=== PATIENT | female | born 1945 | race Caucasian/White ===

== ENCOUNTER → 2017-06-18 | Day surgery (SDC) | payer OTHER ==
[2017-06-13 08:20] VITALS: Ht 160 cm; Wt 63.2 kg
[~2017-06-18] VITALS: Ht 160 cm; Wt 63.2 kg
[~2017-06-18] MED LIST: 500ML BSS 0.3ML EPI 1:1000PF IRRIG ONE; ACETAMINOPHEN 325 MG TAB PO PRN; AMVISC PLUS 0.8ML SYRINGE INT OCU ONE; ATROPINE SULFATE 0.1 MG/ML 5ML SYR IV PRN; BRIMONIDINE TART 0.2% OP SOLN PER DROP CHARGE ONE; BROM0.07 OPL; BSS FLUSH ONE; CEPH-571 PO; ENDOCOAT 0.85ML SYRINGE INT OCU ONE; EpHEDrine SULFATE INJ 50 MG/ML AMP IV PRN; EpINEphrine INJ 1MG/ML AMP 1 MG/ML AMP ONE; LACTATED RINGER'S 1000ML 500 ML IV SCH; LIDOCAINE 4% OP SOLN DROP CHARGE ONE; LIDOCAINE 4% OP SOLN DROP CHARGE OPL SCH; LIDOCAINE HCL 1% MPF 2 ML VIAL ONE; MIDAZOLAM HCL 1 MG/ML 2ML VIAL ONE; MOXIFLOXACIN OPH SOLN PER DROP CHARGE ONE; NF656 TD; NRN/100 PO; ONDANSETRON INJ 2 MG/ML 2 ML VIAL IV PRN; POVIDONE-IODINE OP SOLN 30 ML BTL ONE; PRED1SUS OPL; PRLSR20 PO; PROPARACAINE 0.5% OP SOLN PER DROP CHARGE OPL SCH; TOBRAMYCIN/DEXAMETHASONE OPH OINT PER APPLN CHARGE ONE; VISCOAT 0.5ML SYRINGE INT OCU ONE
[2017-06-18 08:04] VITALS: TEMP 36.5
--- NOTE | 2017-06-18 08:12 | History & Physical Bridge - [place] ---
H&P Re-Evaluation Bridge Note: I have examined the patient, reviewed the History & Physical and in the interval since the performance of the History & Physical I have noted the following changes of clinical significance: No changes noted
[2017-06-18] MEDS: PHENYLEPHRINE HCL 2.5% OP SOLN PER DROP CHARGE OPL SCH ×2 (08:13→08:18)
[2017-06-18] MEDS: TROPICAMIDE 1% OP SOLN PER DROP CHARGE OPL SCH ×2 (08:14→08:19)
[2017-06-18] MEDS: CYCLOPENTOLATE HCL 1% OP SOLN PER DROP CHARGE OPL SCH ×2 (08:15→08:20)
[2017-06-18] MEDS: KETOROLAC 0.5% OP SOLN PER DROP CHARGE OPL SCH ×2 (08:16→08:21)
[2017-06-18] MEDS: MOXIFLOXACIN OPH SOLN PER DROP CHARGE OPL SCH ×2 (08:17→08:27)
--- NOTE | 2017-06-18 09:11 | Discharge Instructions-SurgCtr ---
Discharge Instructions Date of Service Jun 18, 2017. Visit Reason for Visit: Cataract Left Eye Discharge Discharge Diagnosis / Problem: cataract left eye Discharge Goals Goal(s): Improve function Activity Recommendations Activity Limitations: per Instructions/Follow-up section Lifting Limitations: no more than 5 pounds Anesthesia . Post Anesthesia Instructions: If you have had General Anesthesia or IV Sedation: * Do not drive today. * Resume driving when surgeon permits. * Do not make important decisions or sign legal documents today. * Call surgeon for: 1. Temperature elevations greater than 101 degrees F. 2. Uncontrollable pain. 3. Excessive bleeding. 4. Persistent nausea and vomiting. 5. Medication intolerance (nausea, vomiting or rash). * For nausea and vomiting use only clear liquids such as: tea, soda, bouillon until nausea subsides, then gradually increase diet as tolerated. * If you have any concerns or questions, call your surgeon's office. If physician is unavailable and it is an emergency, call 911 or go to the nearest emergency room. . Instructions / Follow-Up Instructions / Follow-Up ACTIVITY RECOMMENDATIONS: * Light activities * You may walk outside, read, watch television. * Mild irritation and blurred vision are common for the first few days, redness around the white part of the eye is common. MEDICATIONS: Resume previous medications unless instructed otherwise by your surgeon. Eye drops (today and tomorrow): Cipro - one drop in operative eye every 2 hours while awake Prednisolone 1% - one drop in operative eye every 2 hours while awake Prolensa - one drop operative eye 1 times daily SPECIAL CARE INSTRUCTIONS: * If any problems or concerns, please call Dr. Garibay's office at . * Keep plastic shield taped over eye to sleep at night. * Keep plastic shield taped over eye except to administer eye drops. * Keep plastic shield on until office visit the following day. FOLLOW UP VISIT: Follow-up with Dr. Garibay in the [place] office as scheduled. If not already scheduled, please call the office at . Diet Recommendations Home Diet: resume previous diet Procedures Procedures Performed: Left Cataract Phacoemulsification With Intraocular Lens Implant Pending Studies Studies pending at discharge: no Medical Emergencies . Who to Call and When: Medical Emergencies: If at any time you feel your situation is an emergency, please call 911 immediately. . Non-Emergent Contact Non-Emergency issues call your: Multi Sensor Operator . . "Provider Documentation" section prepared by Audi Garibay. .
--- NOTE | 2017-06-18 09:13 | [facility] Operative Report ---
Operative Report Operative Date Jun 18, 2017. Pre-Operative Diagnosis Cataract Left Eye Post-Operative Diagnosis Same Procedure(s) Performed Left Cataract Phacoemulsification With Intraocular Lens Implant Surgeon Dr. Garibay Seed District Sales Manager Surgeon(s) None Estimated Blood Loss 0 mL Findings cataract left eye Specimens None Drains none Anesthesia local with sedation Complication(s) None Disposition Recovery Room / PACU Implants mx60 18.5 Indications decreased vision left eye Description of Procedure After informed consent was obtained in the holding area the patient was wheeled back to the operating room where cardiac monitoring leads and oxygen by nasal cannula was administered by Anesthesia. Gentle IV sedation was given, and the patient's left eye was prepped and draped in usual sterile fashion. A wire lid speculum was placed into the left eye and the operating microscope was swung into position. Using 0.12 forceps and a Supersharp blade a paracentesis port was made 3 o'clock hours away from the 3 o'clock position of the patient's left eye. 1% non-preserved Lidocaine was then injected into the anterior chamber for anesthesia. A 2.0 mm keratotome blade was then used to make a shelved clear corneal incision at the 3 o'clock position of the left eye. Amvisc was injected into the anterior chamber and a cystotome and Utrata forceps were used to perform a curvilinear capsulorrhexis. BSS on a hydrodissection cannula was used to hydrodissect the lens nucleus away from the capsular bag. The phacoemulsification handpiece was then used in a stop and chop fashion to remove the lens nucleus. The irrigation and aspiration handpiece was then used to remove the residual cortical material. Amvisc was injected into the capsular bag and anterior chamber and a Bausch [employer] Lomb MX60 18.5 Diopter intraocular lens was injected into the capsular bag. Irrigation and aspiration handpiece was used to remove the residual viscoelastic material. The wounds were hydrated and noted to be watertight. The wire lid speculum was removed from the eye. Vigamox, Brimonidine, and TobraDex ointment were placed on the eye and it was shielded. It should be noted that EndoCoat was used extensively during the case to protect the cornea endothelium. DISPOSITION: The patient tolerated the procedure well and was wheeled to the post anesthesia care unit in stable condition. I attest to the content of the Intraoperative Record and any orders documented therein. Any exceptions are noted below. I attest to the content of the Intraoperative Record and any orders documented therein. Any exceptions are noted below.
--- NOTE | 2017-06-18 09:33 | Anesthesia Progress Nt - [facility] ---
Anesthesia Post Op Note Date & Time Jun 18, 2017 at 09:32 Vital Signs Pain Intensity: 0 Vital Signs Past 12 Hours Date Time Temp Pulse Resp B/P (MAP) Pulse Ox O2 Delivery O2 Flow Rate FiO2 06/18/17 09:15 78 16 121/79 (93) 63 Room Air 06/18/17 08:04 36.5 80 22 142/85 (104) 99 Room Air Notes Mental Status: alert / awake / arousable, participated in evaluation Pt Amnestic to Procedure: Yes Nausea / Vomiting: adequately controlled Pain: adequately controlled Airway Patency, RR, SpO2: stable & adequate BP & HR: stable & adequate Hydration State: stable & adequate Anesthetic Complications: no major complications apparent
[2017-06-18 09:52] VITALS: BP 127/78; PULSE 77; O2SAT 95
== END | disposition home or self-care (01) ==
LOC: X.SURG 07:48
PROVIDERS: ATTEND Ophthalmology
DX: H25.12 Age-related nuclear cataract, left eye (principal); K21.9 Gastro-esophageal reflux disease without esophagitis

== ENCOUNTER → 2017-07-09 | Day surgery (SDC) | payer OTHER ==
[2017-06-25 08:03] VITALS: Ht 160 cm; Wt 63.2 kg
[~2017-07-09] VITALS: Ht 160 cm; Wt 63.2 kg
[~2017-07-09] MED LIST changes: -LIDOCAINE 4% OP SOLN DROP CHARGE OPL SCH; +LIDOCAINE 4% OP SOLN DROP CHARGE OPR SCH; -PROPARACAINE 0.5% OP SOLN PER DROP CHARGE OPL SCH; +PROPARACAINE 0.5% OP SOLN PER DROP CHARGE OPR SCH; -VISCOAT 0.5ML SYRINGE INT OCU ONE
[2017-07-09] MEDS: PHENYLEPHRINE HCL 2.5% OP SOLN PER DROP CHARGE OPR SCH ×2 (09:03→09:08)
[2017-07-09] MEDS: TROPICAMIDE 1% OP SOLN PER DROP CHARGE OPR SCH ×2 (09:04→09:09)
[2017-07-09] MEDS: CYCLOPENTOLATE HCL 1% OP SOLN PER DROP CHARGE OPR SCH ×2 (09:05→09:10)
[2017-07-09] MEDS: KETOROLAC 0.5% OP SOLN PER DROP CHARGE OPR SCH ×2 (09:06→09:11)
[2017-07-09] MEDS: MOXIFLOXACIN OPH SOLN PER DROP CHARGE OPR SCH ×2 (09:07→09:17)
--- NOTE | 2017-07-09 10:24 | Discharge Instructions-SurgCtr ---
Discharge Instructions Date of Service Jul 09, 2017. Visit Reason for Visit: Right Cataract Discharge Discharge Diagnosis / Problem: cataract right eye Discharge Goals Goal(s): Improve function Activity Recommendations Activity Limitations: per Instructions/Follow-up section Lifting Limitations: no more than 5 pounds Anesthesia . Post Anesthesia Instructions: If you have had General Anesthesia or IV Sedation: * Do not drive today. * Resume driving when surgeon permits. * Do not make important decisions or sign legal documents today. * Call surgeon for: 1. Temperature elevations greater than 101 degrees F. 2. Uncontrollable pain. 3. Excessive bleeding. 4. Persistent nausea and vomiting. 5. Medication intolerance (nausea, vomiting or rash). * For nausea and vomiting use only clear liquids such as: tea, soda, bouillon until nausea subsides, then gradually increase diet as tolerated. * If you have any concerns or questions, call your surgeon's office. If physician is unavailable and it is an emergency, call 911 or go to the nearest emergency room. . Instructions / Follow-Up Instructions / Follow-Up ACTIVITY RECOMMENDATIONS: * Light activities * You may walk outside, read, watch television. * Mild irritation and blurred vision are common for the first few days, redness around the white part of the eye is common. MEDICATIONS: Resume previous medications unless instructed otherwise by your surgeon. Eye drops (today and tomorrow): Cipro - one drop in operative eye every 2 hours while awake Prednisolone 1% - one drop in operative eye every 2 hours while awake Prolensa - one drop operative eye 1 times daily SPECIAL CARE INSTRUCTIONS: * If any problems or concerns, please call Dr. Garibay's office at . * Keep plastic shield taped over eye to sleep at night. * Keep plastic shield taped over eye except to administer eye drops. * Keep plastic shield on until office visit the following day. FOLLOW UP VISIT: Follow-up with Dr. Garibay in the [place] office as scheduled. If not already scheduled, please call the office at . Diet Recommendations Home Diet: resume previous diet Procedures Procedures Performed: Right Cataract Phacoemulsification With Intraocular Lens Implant Pending Studies Studies pending at discharge: no Medical Emergencies . Who to Call and When: Medical Emergencies: If at any time you feel your situation is an emergency, please call 911 immediately. . Non-Emergent Contact Non-Emergency issues call your: Upkeep Worker . . "Provider Documentation" section prepared by Audi Garibay. .
[2017-07-09 10:26] VITALS: TEMP 36.8
--- NOTE | 2017-07-09 10:27 | [facility] Operative Report ---
Operative Report Operative Date Jul 09, 2017. Pre-Operative Diagnosis Cataract Right Eye Post-Operative Diagnosis same as preop Procedure(s) Performed Right Cataract Phacoemulsification With Intraocular Lens Implant Surgeon Dr. Garibay Bodybuilder Surgeon(s) none Estimated Blood Loss 0ml Findings cataract right eye Fluids (cc crystalloids) see anesthesia record Specimens none per surgeon Drains none Anesthesia local with sedation Complication(s) None Disposition Recovery Room / PACU Implants mx60 19.5 Indications decreased vision right eye Description of Procedure After informed consent was obtained in the holding area the patient was wheeled back to the operating room where cardiac monitoring leads and oxygen by nasal cannula was administered by Anesthesia. Gentle IV sedation was given, and the patient's right eye was prepped and draped in usual sterile fashion. A wire lid speculum was placed into the right eye and the operating microscope was swung into position. Using 0.12 forceps and a Supersharp blade a paracentesis port was made 2 o'clock hours away from the 9 o'clock position of the patient's right eye. 1% non-preserved Lidocaine was then injected into the anterior chamber for anesthesia. A 2.0 mm keratotome blade was then used to make a shelved clear corneal incision at the 9 o'clock position of the right eye. Amvisc was injected into the anterior chamber and a cystotome and Utrata forceps were used to perform a curvilinear capsulorrhexis. BSS on a hydrodissection cannula was used to hydrodissect the lens nucleus away from the capsular bag. The phacoemulsification handpiece was then used in a stop and chop fashion to remove the lens nucleus. The irrigation and aspiration handpiece was then used to remove the residual cortical material. Amvisc was injected into the capsular bag and anterior chamber and a Bausch & Lomb MX60 19.5 Diopter intraocular lens was injected into the capsular bag. Irrigation and aspiration handpiece was used to remove the residual viscoelastic material. The wounds were hydrated and noted to be watertight. The wire lid speculum was removed from the eye. Vigamox, Brimonidine, and TobraDex ointment were placed on the eye and it was shielded. It should be noted that EndoCoat was used extensively during the case to protect the cornea endothelium. DISPOSITION: The patient tolerated the procedure well and was wheeled to the post anesthesia care unit in stable condition. I attest to the content of the Intraoperative Record and any orders documented therein. Any exceptions are noted below. I attest to the content of the Intraoperative Record and any orders documented therein. Any exceptions are noted below.
[2017-07-09 10:50] VITALS: BP 132/84; PULSE 76; O2SAT 97
--- NOTE | 2017-07-09 10:55 | Anesthesia Progress Nt - [facility] ---
Anesthesia Post Op Note Date & Time Jul 09, 2017 at 10:55 Vital Signs Pain Intensity: 0 Vital Signs Past 12 Hours Date Time Temp Pulse Resp B/P (MAP) Pulse Ox O2 Delivery O2 Flow Rate FiO2 07/09/17 10:50 76 16 132/84 (100) 97 Room Air 07/09/17 10:26 36.8 78 16 153/78 (103) 97 Room Air 07/09/17 08:55 36.3 86 16 151/88 (109) 97 Room Air Notes Mental Status: alert / awake / arousable, participated in evaluation Pt Amnestic to Procedure: Yes Nausea / Vomiting: adequately controlled Pain: adequately controlled Airway Patency, RR, SpO2: stable & adequate BP & HR: stable & adequate Hydration State: stable & adequate Anesthetic Complications: no major complications apparent
== END | disposition home or self-care (01) ==
LOC: X.SURG 08:42
PROVIDERS: ATTEND Ophthalmology
DX: H25.11 Age-related nuclear cataract, right eye (principal); K21.9 Gastro-esophageal reflux disease without esophagitis; Z79.899 Other long term (current) drug therapy

== ENCOUNTER 2017-07-27 19:04 | Emergency (ER) | payer OTHER ==
[~2017-07-27] VITALS: Ht 160 cm; Wt 63.2 kg
[~2017-07-27 19:04] MED LIST changes: -500ML BSS 0.3ML EPI 1:1000PF IRRIG ONE; -ACETAMINOPHEN 325 MG TAB PO PRN; -AMVISC PLUS 0.8ML SYRINGE INT OCU ONE; -ATROPINE SULFATE 0.1 MG/ML 5ML SYR IV PRN; -BRIMONIDINE TART 0.2% OP SOLN PER DROP CHARGE ONE; -BSS FLUSH ONE; -CEPH-571 PO; -ENDOCOAT 0.85ML SYRINGE INT OCU ONE; -EpHEDrine SULFATE INJ 50 MG/ML AMP IV PRN; -EpINEphrine INJ 1MG/ML AMP 1 MG/ML AMP ONE; -LACTATED RINGER'S 1000ML 500 ML IV SCH; -LIDOCAINE 4% OP SOLN DROP CHARGE ONE; -LIDOCAINE 4% OP SOLN DROP CHARGE OPR SCH; -LIDOCAINE HCL 1% MPF 2 ML VIAL ONE; -MIDAZOLAM HCL 1 MG/ML 2ML VIAL ONE; -MOXIFLOXACIN OPH SOLN PER DROP CHARGE ONE; -NF656 TD; -NRN/100 PO; -ONDANSETRON INJ 2 MG/ML 2 ML VIAL IV PRN; -POVIDONE-IODINE OP SOLN 30 ML BTL ONE; -PROPARACAINE 0.5% OP SOLN PER DROP CHARGE OPR SCH; -TOBRAMYCIN/DEXAMETHASONE OPH OINT PER APPLN CHARGE ONE
[2017-07-27 19:14] VITALS: TEMP 36.8; Ht 160 cm; Wt 63.2 kg
[2017-07-27] MEDS ORDERED: LIDODERM (LIDOCAINE) PATCH 5% TD STA (19:54)
[2017-07-27] MEDS ORDERED: HYDROCODONE/ACETAMOPHEN 5/325MG TAB PO STA (19:54)
[2017-07-27] MEDS ORDERED: KETOROLAC TROMETHAMINE 15 MG/ML VIAL IM STA (19:54)
[2017-07-27] MEDS ORDERED: KETOROLAC TROMETHAMINE 30 MG/ML VIAL ONE (20:13)
[2017-07-27] MEDS ORDERED: ONDANSETRON 4MG OD TAB PO STA (20:36)
--- NOTE | 2017-07-27 20:38 | EMERGENCY ROOM VISIT NOTE ---
History Report prepared by Dany: Jose Chaudhari Under the Supervision of: Dr. Macy Dewitt D.O. First contact with patient: 19:44 Chief Complaint: BACK PAIN Stated Complaint: BACK PAIN History of Present Illness The patient is a 71 year old female who presents to the Emergency Room with complaints of constant right lower back pain for the past week. The patient states that she has had similar symptoms for the past few years, and it has worsened after a fall down some steps that occurred in April. States she would to poorly take medication after several days the pain would slowly improved. States she was seen by her PCP and started on medications a week ago when pain started again, however her pain is not abating as he normally would. She states that she is taking a muscle relaxer, steroid, and tramadol. The patient additionally states that she has been nauseous, and she is having pain and tingling in her right leg. Pt denies headache, change in vision, fevers, chest pain, shortness of breath, vomiting, diarrhea, pain with urination, and melena. Patient states she was sent for outpatient x-rays earlier today, however has not yet received results. Patient states this pain does feel similar to prior episodes however it is not going away in its usual fashion. Denies any other recent trauma or injury, no change in urine or urinary habits, no history of UTIs. Source of History: patient Onset: a week ago Position: back (lower back) Timing: constant Associated Symptoms: + nausea Note: Associated symptoms: right leg pain and tingling Review of Systems See HPI for pertinent positives & negatives. A total of 10 systems reviewed and were otherwise negative. Past Medical & Surgical Medical Problems: (1) Anemia Nos (2) Cystic Kidney Disease, Unspecified (3) Esophageal Reflux (4) Goiter Nos (5) Hernia Nos (6) Hypertrophy Of Uterus (7) Hypothyroidism Nos (8) Osteoporosis Nos (9) Uterine Endometriosis Family History Cancer Diabetes mellitus FH: heart disease Social History Smoking Status: Never Smoker Alcohol Use: none Marital Status: single Housing Status: lives alone Occupation Status: unemployed Current/Historical Medications Scheduled Bromfenac Sodium (Ophth) (Prolensa), 1 DROP OPL DAILY Cephalexin (Keflex), 1 CAP PO BID Gabapentin (Neurontin), 100 MG PO TID Lidocaine (Lidoderm Patch 5%), 1 PATCH TD DAILY Prednisolone Acetate (Ophth) (Omnipred), 1 DROPS OPL TID Scheduled PRN Omeprazole (Prilosec Otc *), 20 MG PO DAILY PRN for Indigestion Allergies Coded Allergies: Sulfa Drugs (Verified Allergy, Severe, "BODY TURNS RED", 07/09/17) Latex1 -Allergic Contact Dermititis (Verified Allergy, Unknown, RASH, 07/09) Codeine (Verified Adverse Reaction, Intermediate, N/V, 07/09/17) Physical Exam Vital Signs Date Time Temp Pulse Resp B/P (MAP) Pulse Ox O2 Delivery O2 Flow Rate FiO2 07/27/17 22:26 94 18 138/77 98 Room Air 07/27/17 19:14 36.8 102 20 157/76 96 Room Air Physical Exam GENERAL: alert, uncomfortable appearing, well nourished, no distress, non-toxic EYE EXAM: normal conjunctiva, PERRL and EOM's grossly intact OROPHARYNX: no exudate, no erythema, lips, buccal mucosa, and tongue normal and mucous membranes are moist NECK: supple, no nuchal rigidity, no adenopathy, non-tender LUNGS: Clear to auscultation. Normal chest wall mechanics HEART: no murmurs, S1 normal and S2 normal ABDOMEN: abdomen soft, non-tender, normo-active bowel sounds, no masses, no rebound or guarding. BACK: Pain in the lumbar pine at the midline and right side, no CVA tenderness. SKIN: no rashes and no bruising UPPER EXTREMITIES: upper extremities are grossly normal. LOWER EXTREMITIES: No pitting edema. No joint effusion NEURO EXAM: Normal sensorium, cranial nerves II-XII grossly intact, normal speech, no gross weakness of arms, no gross weakness of legs. Gross sensation intact. Medical Decision & Procedures ER Provider Diagnostic Interpretation: Radiology results have been interpreted by the radiologist and reviewed by me. ABD/PELVIS NO IV OR ORAL CONT CT DOSE: 408.34 mGycm HISTORY: Back pain. Flank pain. low back pain, uti TECHNIQUE: Multiaxial CT images of the abdomen and pelvis were performed without contrast. A dose lowering technique was utilized adhering to the principles of ALARA. COMPARISON STUDY: 05/22/2014 FINDINGS: Minimal basilar dependent atelectasis. Liver is uniform. Gallbladder is negative for distention. Kidneys are negative for hydronephrosis or calcification. Bowel pattern is nonobstructive. Pancreas is fatty replaced. Bladder is midline. There are no contained calcifications. There is no significant abdominal pelvic or inguinal adenopathy. No evidence for distention of the appendix. IMPRESSION: No acute process of the abdomen or pelvis. The above report was generated using voice recognition software. It may contain grammatical, syntax or spelling errors. Electronically signed by: Zeb Arrieta M.D. 07/27/2017 10:31 PM Dictated Date/Time: 07/27/2017 10:26 PM Laboratory Results Test 07/27/17 21:55 Urine Color DK YELLOW Urine Appearance CLOUDY (CLEAR) Urine pH 5.0 (4.5-7.5) Urine Specific [place] 1.026 (1.000-1.030) Urine Protein TRACE (NEG) Urine Glucose (UA) TRACE (NEG) Urine Ketones 2+ (NEG) Urine Occult Blood 1+ (NEG) Urine Nitrite POS (NEG) Urine Bilirubin NEG (NEG) Urine Urobilinogen NEG (NEG) Urine Leukocyte Esterase SMALL (NEG) Urine WBC (Auto) 10-30 /hpf (0-5) Urine RBC (Auto) 0-4 /hpf (0-4) Urine Hyaline Casts (Auto) 1-5 /lpf (0-5) Urine Epithelial Cells (Auto) 0-5 /lpf (0-5) Urine Bacteria (Auto) 4+ (NEG) Laboratory results per my review. Medications Administered Medications (Trade) Dose Ordered Sig/Zeina Route Start Time Stop Time Status Last Admin Dose Admin Lidocaine (Lidoderm Patch 5%) 1 patch NOW STAT TD 07/27/17 19:54 07/27/17 19:55 DC 07/27/17 20:17 1 PATCH Ketorolac Tromethamine (Toradol Inj) 15 mg NOW STAT IM 07/27/17 19:54 07/27/17 19:55 DC 07/27/17 20:15 15 MG Acetaminophen/ Hydrocodone Bitart ([place] 5/325 Tab) 1 tab NOW STAT PO 07/27/17 19:54 07/27/17 19:55 DC 07/27/17 20:17 1 TAB Ondansetron HCl (Zofran Odt) 4 mg NOW STAT PO 07/27/17 20:36 07/27/17 20:37 DC 07/27/17 20:47 4 MG Gabapentin (Neurontin Cap) 100 mg NOW STAT PO 07/27/17 21:44 07/27/17 21:46 DC 07/27/17 21:55 100 MG Cephalexin Monohydrate (Keflex Cap) 500 mg NOW ONCE PO 07/27/17 22:00 07/27/17 22:01 DC 07/27/17 22:29 500 MG Acetaminophen/ Hydrocodone Bitart ([place] 5/325mg Home Pack) 1 homepack UD ONCE PO 07/27/17 23:30 07/27/17 23:31 DC 07/27/17 23:33 1 HOMEPACK ED Course 1943: The patient was evaluated in room B2. A complete history and physical exam was performed. 1953: [place] 5/325 Tab PO, Toradol Inj 15mg IM, Lidoderm Patch 5% 1 Patch TD 2034: I reevaluated the patient, and she just got her medications. 2035: Zofran Odt 4mg PO 2143: I reassessed the patient, and she states that the pain is a little better. I ordered Neurontin Cap 100mg PO 2199: Keflex Cap 500mg PO 2214: Upon reevaluation, the patient is feeling better. I discussed the findings and the treatment plan with the patient. She verbalizes agreement and understanding. She was discharged home. Medical Decision Differential diagnosis: Etiologies such as renal colic, appendicitis, diverticulitis, mesenteric ischemia, aortic pathology, infections, inflammatory bowel disease, PUD, biliary pathology, UTI, as well as others were entertained. No evidence of renal stone, doubt pyelonephritis, UTI noted to patient started on medications here. Likely this could be contribute factors to why patient's pain did not kim in his usual time. Patient did feel markedly improved following application of Lidoderm patch and use the gabapentin for radiculopathy. Discussed with patient follow-up with family doctor, use of antibiotics, hydration, symptoms watch and return for, possible adverse reactions and precautions when using muscle relaxers or stronger pain medications, patient with no other history of renal dysfunction, patient verbalized understanding of all this was agreeable with plan. Doubt bacteremia/ sepsis, no evidence of additional GI or vascular pathology. Patient and related here with steady gait was tolerating by mouth at bedside, vital signs stable throughout. Patient's pain markedly improved and patient comfortable appearing at time of discharge. Medication Reconcilliation Current Medication List: was personally reviewed by me Blood Pressure Screening Patient's blood pressure: Elevated blood pressure Blood pressure disposition: Elevated BP felt to be situational Impression Primary Impression: Back pain Additional Impression: UTI (urinary tract infection) Scribe Attestation The scribe's documentation has been prepared under my direction and personally reviewed by me in its entirety. I confirm that the note above accurately reflects all work, treatment, procedures, and medical decision making performed by me. Departure Information Dispostion Home / Self-Care Prescriptions Gabapentin (Neurontin) 100 Mg Cap 100 MG PO TID for Pain, #30 CAP Prov: Macy Dewitt, DO 07/27/17 Lidocaine (Lidoderm Patch 5%) 1 Ea Tdsy 1 PATCH TD DAILY for Pain, #1 BOX Prov: Macy Dewitt, DO 07/27/17 Cephalexin (KEFLEX) 500 Mg Cap 1 CAP PO BID for 7 Days, #14 CAP Prov: Macy Dewitt, DO 07/27/17 Referrals Galilea Brumfield D.O. (PCP) Forms HOME CARE DOCUMENTATION FORM, IMPORTANT VISIT INFORMATION Patient Instructions [facility] Additional Instructions Please take the antibiotics as prescribed. Please follow-up with your family doctor. Your urine was sent for a culture. You may use the pain patch, nerve pain medicine as prescribed. You may use the stronger pain medication if you need it. Please monitor for constipation as this is a common side effect. Please do not take it with your muscle relaxer, do not take it and drive. If you have any worsening pain, develop fevers/chills, vomiting, dizziness, notice a change in the color or odor or your urine, develop diarrhea, or you have any other new or concerning symptoms, please return to the emergency room. Problem Qualifiers Primary Impression: Back pain Back pain location: low back pain Chronicity: acute Back pain laterality: right Sciatica presence: with sciatica Sciatica laterality: sciatica of right side Qualified Codes: M54.41 - Lumbago with sciatica, right side Additional Impression: UTI (urinary tract infection) Urinary tract infection type: acute cystitis Hematuria presence: with hematuria Qualified Codes: N30.01 - Acute cystitis with hematuria
[2017-07-27] MEDS ORDERED: GABAPENTIN 100 MG CAP PO STA (21:44)
[2017-07-27] MEDS ORDERED: CEPHALEXIN MONOHYDRATE 250 MG CAP PO ONE (22:00)
[2017-07-27 22:14] LABS: URINE APPEARANCE CLOUDY (CLEAR); URINE BILIRUBIN NEG (NEG); URINE COLOR DK YELLOW; URINE EPITHELIAL CELL AUTO 0-5 /lpf (0-5); URINE NITRITE POS (NEG); URINE SPECIFIC GRAVITY 1.026 (1.000-1.030); UROBILINOGEN NEG (NEG); ZZUR CULT IF INDIC CLEAN CATCH YES
[2017-07-27 22:15] LABS: MANUAL MICROSCOPIC REQUIRED? NO; REVIEW REQ? NO
[2017-07-27 22:26] VITALS: BP 138/77; PULSE 94; O2SAT 98
--- NOTE | 2017-07-27 22:32 | DIAGNOSTIC IMAGING REPORT ---
ABD/PELVIS NO IV OR ORAL CONT CT DOSE: 408.34 mGycm HISTORY: Back pain. Flank pain. low back pain, uti TECHNIQUE: Multiaxial CT images of the abdomen and pelvis were performed without contrast. A dose lowering technique was utilized adhering to the principles of ALARA. COMPARISON STUDY: 05/22/2014 FINDINGS: Minimal basilar dependent atelectasis. Liver is uniform. Gallbladder is negative for distention. Kidneys are negative for hydronephrosis or calcification. Bowel pattern is nonobstructive. Pancreas is fatty replaced. Bladder is midline. There are no contained calcifications. There is no significant abdominal pelvic or inguinal adenopathy. No evidence for distention of the appendix. IMPRESSION: No acute process of the abdomen or pelvis. The above report was generated using voice recognition software. It may contain grammatical, syntax or spelling errors. Electronically signed by: Zeb Arrieta M.D. 07/27/2017 10:31 PM Dictated Date/Time: 07/27/2017 10:26 PM
[2017-07-27] MEDS ORDERED: CEPH-571 PO (23:18)
[2017-07-27] MEDS ORDERED: NF656 TD (23:18)
[2017-07-27] MEDS ORDERED: NRN/100 PO (23:18)
[2017-07-27] MEDS ORDERED: NORCO 5/325MG HOME PACK PO ONE (23:30)
== END 2017-07-27 23:30 | disposition home or self-care (01) ==
LOC: C.EDB 19:05
DX: M54.41 Lumbago with sciatica, right side (principal); N30.01 Acute cystitis with hematuria; D64.9 Anemia, unspecified; K21.9 Gastro-esophageal reflux disease without esophagitis; E03.9 Hypothyroidism, unspecified; Z83.3 Family history of diabetes mellitus; Z82.49 Family history of ischemic heart disease and other diseases of the circulatory system

== ENCOUNTER 2018-07-07 12:35 | Emergency (ER) | payer OTHER ==
[~2018-07-07] VITALS: Ht 160 cm; Wt 61.1 kg
[~2018-07-07 12:35] MED LIST changes: -BROM0.07 OPL; +OXYC-57 PO; +PANT40TA PO; -PRED1SUS OPL; -PRLSR20 PO; +TRAM-10 PO
[2018-07-07 12:40] VITALS: TEMP 36.5; Ht 160 cm; Wt 61.1 kg
[2018-07-07] MEDS ORDERED: ACETAMINOPHEN 500 MG TAB PO STA (13:36)
[2018-07-07] MEDS ORDERED: ONDANSETRON 4MG OD TAB PO ONE (13:45)
[2018-07-07 13:59] VITALS: BP 160/81; PULSE 76; O2SAT 98
--- NOTE | 2018-07-07 14:05 | EMERGENCY ROOM VISIT NOTE ---
ED Visit Note First contact with patient: 13:12 The patient was seen and examined with Lorene Potter PA-C. I agree with the history, physical and findings. Please see the note for disposition and details.
--- NOTE | 2018-07-07 14:36 | DIAGNOSTIC IMAGING REPORT ---
RIGHT LOWER EXTREMITY VENOUS DOPPLER CLINICAL HISTORY: Right leg pain and swelling. COMPARISON STUDY: No previous studies for comparison. TECHNIQUE: Sonography of the deep venous system of the right lower extremity was performed. Compression and augmentation were evaluated. FINDINGS: The right common femoral, superficial femoral and popliteal veins were compressible. Augmentation was normal. Flow was shown within the deep calf vessels. IMPRESSION: No evidence of deep venous thrombus within the right lower extremity. Electronically signed by: Markel Moser M.D. 07/07/2018 2:35 PM Dictated Date/Time: 07/07/2018 2:34 PM
--- NOTE | 2018-07-07 14:57 | EMERGENCY ROOM VISIT NOTE ---
ED Visit Note First contact with patient: 13:12 CHIEF COMPLAINT: Right leg pain HISTORY OF PRESENTING ILLNESS: This is a 72-year-old female who presents to the emergency department with complaint of right leg pain for the past few days. She states that the pain is constant, worse with moving the leg and with walking , in the posterior knee and thigh, describes as an ache, currently rates as 2/ 10. She has not tried anything for the pain. She states that she had her gallbladder removed this past Sunday and she is concerned about a blood clot because of the recent surgery. She denies any fevers or chills. She denies any symptoms of chest pain, shortness of breath, dizziness, syncope, hemoptysis. She feels that her abdominal incisions are healing well and her abdominal pain is improving since the surgery. She denies any history of blood clots. REVIEW OF SYSTEMS: A complete 10 point review of systems was reviewed with the patient with pertinent positives and negatives as per history of present illness. All else were negative. PAST MEDICAL HISTORY: Reviewed in the chart, see problem list below. SOCIAL HISTORY: Lives at home. She denies tobacco use. ALLERGIES: Reviewed in chart, see below. PHYSICAL EXAM: CONSTITUTIONAL: Pleasant and cooperative. No acute distress. Well appearing and well nourished. HEENT: Normocephalic, atraumatic. Moist membranes. NECK: Supple, full active range of motion without discomfort. RESPIRATORY: Clear to auscultation bilaterally with no wheezing, crackles, rhonchi or stridor. Equal expansion bilaterally. CARDIOVASCULAR: Regular rate and rhythm with no murmurs, rubs or gallops. Normal peripheral perfusion. No edema. GASTROINTESTINAL: Soft, nontender, nondistended. Laparoscopic surgical incisions noted to the abdomen, appear intact and healing well, no erythema or drainage appreciated. No palpable masses or HSM. Bowel sounds present in all quadrants. MUSCULOSKELETAL: Tenderness to palpation of the right medial and posterior thigh and posterior knee, reproduces complaint. No erythema, warmth to touch, or notable swelling on exam. Full range of motion of all joints without discomfort. INTEGUMENTARY: No rash or other significant dermatologic conditions noted. NEUROLOGIC: Alert and oriented X 4 with normal affect. Normal strength and sensation in all 4 extremities. No focal neurologic deficits noted. Normal speech. Normal gait observed. ED COURSE AND MEDICAL DECISION MAKING: CC: Patient presenting with complaint of right leg pain DIFFERENTIAL DIAGNOSIS: Includes, but not limited to DVT, musculoskeletal sprain/strain, muscle spasm, among others. IMAGING: RIGHT LOWER EXTREMITY VENOUS DOPPLER CLINICAL HISTORY: Right leg pain and swelling. COMPARISON STUDY: No previous studies for comparison. TECHNIQUE: Sonography of the deep venous system of the right lower extremity was performed. Compression and augmentation were evaluated. FINDINGS: The right common femoral, superficial femoral and popliteal veins were compressible. Augmentation was normal. Flow was shown within the deep calf vessels. IMPRESSION: No evidence of deep venous thrombus within the right lower extremity. MEDICATION RECONCILIATION: I attest that I have personally reviewed the patient 's current medication list. INITIAL VITAL SIGNS REVIEW: I reviewed the patient's initial vital signs and interpret them as follows: T: Afebrile; BP: Hypertensive; HR: Within normal limits; RR: Within normal limits; Pulse Ox: Within normal limits on room air. Blood pressure screening: The patient was found to have an elevated blood pressure and was referred to their primary doctor for recheck and further treatment. SUMMARY: Patient was evaluated at bedside, history and physical exam performed. Patient is alert and oriented, in no acute distress, resting calmly in the stretcher. Patient has tenderness to palpation of the posterior knee and thigh of the right leg. Orders were placed at bedside for venous duplex of the right leg to evaluate for DVT. Patient was given p.o. Tylenol for pain, and ODT Zofran for nausea per her request. Patient discussed with Dr. Mars, who also evaluated the patient and agrees with my assessment and plan. Imaging reviewed as above, negative for DVT. Patient reassessed multiple times throughout ED stay, she is remained stable, she reports her pain is improved with Tylenol. Patient was updated on all results and plan for discharge, she was encouraged to follow closely with her PCP for ongoing management of her pain. She states she has a follow-up appointment scheduled this week. Patient was also given strict return precautions should her symptoms worsen, she verbalized understanding. Patient was discharged home in stable condition and ambulatory. Problem List Medical Problems: (1) Anemia Nos Status: Chronic (2) Back pain Status: Resolved (3) Back pain Status: Resolved (4) Cystic Kidney Disease, Unspecified Status: Chronic (5) Esophageal Reflux Status: Chronic (6) Goiter Nos Status: Resolved (7) Hernia Nos Status: Resolved (8) Hypertrophy Of Uterus Status: Resolved (9) Hypothyroidism Nos Status: Chronic (10) Osteoporosis Nos Status: Chronic (11) Uterine Endometriosis Status: Chronic Current/Historical Medications Scheduled PRN Oxycodone/Acetaminophen 5MG/325MG (Percocet 5MG/325MG), 1 TABLET PO Q4H PRN for Pain Pantoprazole (Protonix), 40 MG PO DAILY PRN for Indigestion Tramadol (Ultram), 50 MG PO Q8H PRN for Pain Allergies Coded Allergies: Sulfa Drugs (Verified Allergy, Severe, "BODY TURNS RED", 07/01/18) Latex1 -Allergic Contact Dermititis (Verified Allergy, Unknown, RASH, 07/01) Codeine (Verified Adverse Reaction, Intermediate, N/V, 07/01/18) Vital Signs Date Time Temp Pulse Resp B/P (MAP) Pulse Ox O2 Delivery O2 Flow Rate FiO2 07/07/18 13:59 76 20 160/81 98 Room Air 07/07/18 12:40 36.5 87 18 152/96 99 Room Air Medications Administered Medications (Trade) Dose Ordered Sig/Zeina Route Start Time Stop Time Status Last Admin Dose Admin Acetaminophen (Tylenol Tab) 1,000 mg NOW STAT PO 07/07/18 13:36 07/07/18 13:38 DC 07/07/18 13:57 1,000 MG Ondansetron HCl (Zofran Odt) 4 mg ONE ONCE PO 07/07/18 13:45 07/07/18 13:46 DC 07/07/18 13:56 4 MG Departure Information Impression Primary Impression: Leg pain, right Dispostion Home / Self-Care Condition GOOD Referrals Good Jones D.O. (PCP) Patient Instructions ED Muscle Pain Leg Cramps, My [facility] Additional Instructions You have been evaluated and treated in the emergency department today for your right leg pain. Ultrasound of your leg is negative for any blood clots (DVT). You may take ibuprofen 600 mg every 6 hours and/or Tylenol 650 mg every 6 hours as needed for pain. For best results, alternate between ibuprofen and Tylenol every 3-4 hours. You may alternate ice and heat to the area to help improve pain. Try to do some gentle stretches and massage of the muscles to improve pain as well. Please follow-up with your primary care provider in the next few days for reevaluation, or sooner if your symptoms are not improving. Please return to the emergency department for significant worsening pain, swelling, redness, fever/chills, loss of feeling or movement in the leg, or any other concerns.
== END 2018-07-07 15:28 | disposition home or self-care (01) ==
LOC: C.EDB 12:36 → C.EDD 15:28
DX: M79.651 Pain in right thigh (principal); M25.561 Pain in right knee; D64.9 Anemia, unspecified; N18.9 Chronic kidney disease, unspecified; E03.9 Hypothyroidism, unspecified; Z88.2 Allergy status to sulfonamides; Z91.040 Latex allergy status; Z88.5 Allergy status to narcotic agent